=== PATIENT | female | born 1930 | race Caucasian/White ===

== ENCOUNTER 2016-09-28 09:50 | Emergency (ER) | payer MEDICARE, BC ==
[2016-09-28 10:05] VITALS: TEMP 97.8; BMI 26.6
[2016-09-28 10:21] LABS: AUTOMATED BASOPHIL 0.8 % (0-2); AUTOMATED LYMPH 15.8 % (17-44); AUTOMATED MONOCYTE 10.3 % (3-10); AUTOMATED NEUTROPHIL 71.1 % (45-76); MPV 7.9 fL (7.4-10.4)
[2016-09-28 10:34] LABS: LEUKOCYTES/URINE NEG (NEGATIVE); NITRITE/URINE NEG (NEGATIVE); URINE OCCULT BLOOD NEG (NEG/TRACE)
[2016-09-28 10:35] LABS: RBC/URINE 0-2 (0-5); WBC/URINE 0-2 (0-5)
[2016-09-28 10:40] LABS: BLOOD UREA NITROGEN 18 MG/DL (7-17); CALCIUM 9.3 MG/DL (8.4-10.2); CALCULATED OSMOLALITY 260 MOs/Kg (270-290); CHLORIDE 99 mEq/L (98-107); GLUCOSE 91 MG/DL (70-99); SODIUM LEVEL 134 mEq/L (137-146)
[2016-09-28 10:44] LABS: PARTIAL THROMB. TIME 23.4 SEC (22-35)
--- NOTE | 2016-09-28 11:29 | DIRPT ---
CLINICAL DATA: Status post fall this morning. Weakness. Initial encounter. EXAM: PORTABLE CHEST 1 VIEW COMPARISON: CT chest 07/23/2016. Single view of the chest 04/08/2016. FINDINGS: There is cardiomegaly without edema. Large hiatal hernia is seen. The lungs are clear. No pneumothorax or pleural effusion. IMPRESSION: No acute disease. Cardiomegaly. Hiatal hernia. Electronically Signed By: Jesus Barragan M.D. On: 09/28/2016 11:27
--- NOTE | 2016-09-28 12:24 | DIRPT ---
CLINICAL DATA: Status post fall this morning. Headache, weakness and dizziness. Initial encounter. EXAM: CT HEAD WITHOUT CONTRAST TECHNIQUE: Contiguous axial images were obtained from the base of the skull through the vertex without intravenous contrast. COMPARISON: Head CT scan 11/08/2015. FINDINGS: There is atrophy and chronic microvascular ischemic change. No evidence of acute intracranial abnormality including hemorrhage, infarct, mass lesion, mass effect, midline shift or abnormal extra-axial fluid collection is identified. There is no hydrocephalus or pneumocephalus. The calvarium is intact. IMPRESSION: No acute abnormality. Atrophy and chronic microvascular ischemic change. Electronically Signed By: Jesus Barragan M.D. On: 09/28/2016 12:22
--- NOTE | 2016-09-28 14:13 | EDPRACDOC ---
- General Information Chief Complaint: Generalized Weakness Stated Complaint: FALL Time Seen by Provider: 09/28/16 10:57 Information Source: Patient Home Medications: Home Medications CloNIDine (Antihypertensive) [Catapres] 0.1 mg PO DAILY PRN 11/08/15 Clopidogrel Bisulfate [Plavix] 75 mg PO DAILY 11/08/15 Gabapentin [Neurontin] 1,200 mg PO BID 11/08/15 Lovastatin 20 mg PO QHS 11/08/15 Omeprazole [Prilosec] 20 mg PO DAILY 11/08/15 Allergies/Adverse Reactions: Allergies Allergy/AdvReac Type Severity Reaction Status Date / Time aspirin [From Aggrenox] Allergy Headache Verified 09/28/16 10:05 dipyridamole [From Aggrenox] Allergy Headache Verified 09/28/16 10:05 enoxaparin sodium Allergy Headache Verified 09/28/16 10:05 [From Lovenox] hydrocodone [Hydrocodone] Allergy Rash-Genera Verified 09/28/16 10:05 lized morphine Allergy Confusion Verified 09/28/16 10:05 naproxen sodium [From Aleve] Allergy Difficulty Verified 09/28/16 10:05 Breathing prednisone Allergy Headache Verified 09/28/16 10:05 - History of Present Illness Onset: YEST Exact Onset of Symptoms: Unknown Symptoms Started: Reports: Gradually, At Rest, With light exertion Weakness: Bilateral: Generalized Symptoms: Reports: Weak Associated signs and symptoms:: Reports: None Other History: GENERALIZED WEAKNESS. NO ALLEV OR AGG FACTORS. LEGS JUST BUCKLED AND SHE SAT DOWN. DENIES INJURY. ED Past Medical History - History Reviewed If yes, which country: [facility] Travel dates: JUN 2016 - Patient Medical History Cardiac History: Reports: Atrial Fibrillation, Hypertension (OFF MEDS), Cardiac Catheterization (MARCH 2016: Nonobstructive 40-50% stenosis), Hypercholesterolemia, Valvular Heart Disease (History of mitral regurgitation.) Respiratory History: Denies: Pneumonia GI/ History: Reports: Gastroesophageal Reflux Musculoskeletal History: Reports: Arthritis (and peripheral neuropathy. DDD.), Osteoarthritis (and osteoporosis.) Psychological History: Denies: Depression, Substance Use Disorder Systemic History: Reports: Anemia (anemia of chronic disease). Denies: Cancer Surgical History: Reports: Cardiac Catheterization (Nonobstructive 40-50% stenosis), Other (Knee surgery) - Family Medical History Reports: Hypertension (mother), Cancer ([place]), Cardiac Disorders ( mother, father) - Social Medical History Smoking Status: Never smoker Social History: Denies: Substance Use Disorder EDM Review of Systems - Review of Systems ROS Negative Except as Marked: Yes All systems reviewed and were negative except as marked Constitutional: Fatigue, Loss of Appetite, Weakness. negative: Chills, Fever, Diaphoresis Eyes: No Symptoms Reported Ears: No Symptoms Reported Respiratory: No Symptoms Reported Cardiovascular: No Symptoms Reported - Physical Exam Constitutional: Alert (Awake), No apparent distress Oriented to: Time, Person, Place Last recorded Vital Signs: Last Vital Signs Temp 97.8 F 09/28/16 09:59 Pulse 69 09/28/16 11:46 Resp 20 09/28/16 09:59 BP 153/79 09/28/16 11:46 Pulse Ox 97 09/28/16 11:46 Oxygen Pulse Oxygen Saturation 97 O2 Device Oxygen Flow Rate Fraction of Inspired Oxygen ( FIO2) - HEENT Head: Normal ( normocephalic) Eye Exam: Normal (PERRL, EOMI, Sclera white) Oropharynx: Normal (Pharynx:Moist without exudate,Gums-no swelling) Tympanic Membrane: Normal ENT EAC: Normal TMJ: Normal Nose: No Symptoms Reported (septum midline) Neck: Normal (FROM, trachea at midline) - Respiratory/Cardiovascular Respiratory: Normal - CTA (BBS clear to auscultation without adventitious sounds ) Cardiovascular: Normal (RRR without murmur, gallop or rub) - GI Auscultation: Normal (NABS) Palpation: Normal (Soft,No rebound or guarding, non distended) Tenderness: Non tender Catherine's Sign: Negative - Musculoskeletal Back: Normal (Non-Tender) Extremities: Normal (Normal tone, Pulses 2+ No cyanosis or edema, FROM) - Integumentary Skin: Normal, Warm, Dry Lymphatics: Normal (no adenopathy) - Neurologic Memory Impaired: Normal Motor Function: Normal (Normal tone, Pulses 2+ No cyanosis or edema, FROM) Cranial Nerve: Normal (CN II-X11 intact sensation, strength 5/5) Cerebellar: Normal Mood Description: Normal Perception: Normal NIH Stroke Scale Re-evaluation 1 Level of Consciousness: Alert - Re-evaluation Re-evaluation 3 Re-evaluation Time: 15:28 (STILL ASYMPTOMATIC) - Results 09/28/16 10:05 09/28/16 10:05 WBC 8.7 xk/uL (3.8-10.8) 09/28/16 10:05 RBC 4.65 xM/uL (4.20-5.40) 09/28/16 10:05 Hgb 13.2 g/dL (12.0-16.0) 09/28/16 10:05 Hct 40.7 % (36-47) 09/28/16 10:05 MCV 88 fL (81-99) 09/28/16 10:05 MCH 28.5 pg (27-32) 09/28/16 10:05 MCHC 32.6 g/dl (33-36) L 09/28/16 10:05 RDW 13.7 % (11.5-14.5) 09/28/16 10:05 Plt Count 189 xk/uL (130-400) 09/28/16 10:05 MPV 7.9 fL (7.4-10.4) 09/28/16 10:05 Neut % (Auto) 71.1 % (45-76) 09/28/16 10:05 Lymph % (Auto) 15.8 % (17-44) L 09/28/16 10:05 [place] % (Auto) 10.3 % (3-10) H 09/28/16 10:05 Eos % (Auto) 2.0 % (0-5) 09/28/16 10:05 Baso % (Auto) 0.8 % (0-2) 09/28/16 10:05 Absolute Neuts (auto) 6.18 xk/uL (1.7-8.2) 09/28/16 10:05 Absolute Lymphs (auto) 1.31 xk/uL (0.65-4.75) 09/28/16 10:05 PT 10.4 SEC (9.2-11.2) 09/28/16 10:05 INR 1.0 09/28/16 10:05 APTT 23.4 SEC (22-35) 09/28/16 10:05 Sodium 134 mEq/L (137-146) L 09/28/16 10:05 Potassium 4.9 mEq/L (3.5-5.1) 09/28/16 10:05 Chloride 99 mEq/L (98-107) 09/28/16 10:05 Carbon Dioxide 25 mMOL/L (22-33) 09/28/16 10:05 Anion Gap 15 mEq/L (8-16) 09/28/16 10:05 BUN 18 MG/DL (7-17) H 09/28/16 10:05 Creatinine 1.10 MG/DL (0.52-1.04) H 09/28/16 10:05 Estimated GFR (MDRD) 47 mL/min (>=60) L 09/28/16 10:05 Glucose 91 MG/DL (70-99) 09/28/16 10:05 Calculated Osmolality 260 MOs/Kg (270-290) L 09/28/16 10:05 Calcium 9.3 MG/DL (8.4-10.2) 09/28/16 10:05 Total Bilirubin 1.4 MG/DL (0.2-1.3) H 09/28/16 10:05 AST 23 IU/L (14-36) 09/28/16 10:05 ALT 26 IU/L (9-52) 09/28/16 10:05 Alkaline Phosphatase 114 IU/L (55-165) 09/28/16 10:05 Troponin I < 0.01 ng/mL (<.04) 09/28/16 13:02 Imt-H-Vkcztpnzzxs Pept 701 pg/mL (0-1800) 09/28/16 10:05 Total Protein 8.0 G/DL (6.3-8.2) 09/28/16 10:05 Albumin 4.2 G/DL (3.5-5.0) 09/28/16 10:05 Urine Color Yellow 09/28/16 10:15 Urine Clarity Clear 09/28/16 10:15 Urine pH 5.0 (5.0-8.0) 09/28/16 10:15 Ur Specific [place] 1.005 09/28/16 10:15 Urine Protein Neg (NEG/TRACE) 09/28/16 10:15 Urine Glucose (UA) Neg (NEGATIVE) 09/28/16 10:15 Urine Ketones Neg (NEGATIVE) 09/28/16 10:15 Urine Occult Blood Neg (NEG/TRACE) 09/28/16 10:15 Urine Nitrite Neg (NEGATIVE) 09/28/16 10:15 Urine Bilirubin Neg (NEGATIVE) 09/28/16 10:15 Urine Urobilinogen 0.2 MG/DL (0-1) 09/28/16 10:15 Ur Leukocyte Esterase Neg (NEGATIVE) 09/28/16 10:15 Urine RBC 0-2 (0-5) 09/28/16 10:15 Urine WBC 0-2 (0-5) 09/28/16 10:15 Ur Epithelial Cells Occ 09/28/16 10:15 Urine Bacteria Few (NEG/FEW) 09/28/16 10:15 Hyaline Casts 5-10 (0-2) H 09/28/16 10:15 Urine Mucus Occ (NEG/OCC) 09/28/16 10:15 Lab Results 09/28/16 09/28/16 09/28/16 13:02 10:15 10:05 WBC RBC Hgb Hct MCV MCH MCHC RDW Plt Count MPV Neut % (Auto) Lymph % (Auto) [place] % (Auto) Eos % (Auto) Baso % (Auto) Absolute Neuts (auto) Absolute Lymphs (auto) PT 10.4 INR 1.0 APTT 23.4 Sodium Potassium Chloride Carbon Dioxide Anion Gap BUN Creatinine Estimated GFR (MDRD) Glucose Calculated Osmolality Calcium Total Bilirubin AST ALT Alkaline Phosphatase Troponin I < 0.01 Tpl-A-Cvgayjovkxh Pept Total Protein Albumin Urine Color Yellow Urine Clarity Clear Urine pH 5.0 Ur Specific [place] 1.005 Urine Protein Neg Urine Glucose (UA) Neg Urine Ketones Neg Urine Occult Blood Neg Urine Nitrite Neg Urine Bilirubin Neg Urine Urobilinogen 0.2 Ur Leukocyte Esterase Neg Urine RBC 0-2 Urine WBC 0-2 Ur Epithelial Cells Occ Urine Bacteria Few Hyaline Casts 5-10 H Urine Mucus Occ 09/28/16 09/28/16 10:05 10:05 WBC 8.7 RBC 4.65 Hgb 13.2 Hct 40.7 MCV 88 MCH 28.5 MCHC 32.6 L RDW 13.7 Plt Count 189 MPV 7.9 Neut % (Auto) 71.1 Lymph % (Auto) 15.8 L [place] % (Auto) 10.3 H Eos % (Auto) 2.0 Baso % (Auto) 0.8 Absolute Neuts (auto) 6.18 Absolute Lymphs (auto) 1.31 PT INR APTT Sodium 134 L Potassium 4.9 Chloride 99 Carbon Dioxide 25 Anion Gap 15 BUN 18 H Creatinine 1.10 H Estimated GFR (MDRD) 47 L Glucose 91 Calculated Osmolality 260 L Calcium 9.3 Total Bilirubin 1.4 H AST 23 ALT 26 Alkaline Phosphatase 114 Troponin I < 0.01 Rtx-E-Qbynhixtvpc Pept 701 Total Protein 8.0 Albumin 4.2 Urine Color Urine Clarity Urine pH Ur Specific [place] Urine Protein Urine Glucose (UA) Urine Ketones Urine Occult Blood Urine Nitrite Urine Bilirubin Urine Urobilinogen Ur Leukocyte Esterase Urine RBC Urine WBC Ur Epithelial Cells Urine Bacteria Hyaline Casts Urine Mucus - Diagnostic Imaging Head Image interpreted by: Radiologist Patient Name: DAIANA SARAVIA LOC: ED : 1930 AGE: 85 Order Date:09/28/16 Date of Service: Report # [id number] Ord Physician: Gladis Chow MD Exam # [id number] Emergency Physician: Gladis Chow MD Exam(s): [id number] CT/CT HEAD W/O CM CLINICAL DATA: Status post fall this morning. Headache, weakness and dizziness. Initial encounter. EXAM: CT HEAD WITHOUT CONTRAST TECHNIQUE: Contiguous axial images were obtained from the base of the skull through the vertex without intravenous contrast. COMPARISON: Head CT scan 11/08/2015. FINDINGS: There is atrophy and chronic microvascular ischemic change. No evidence of acute intracranial abnormality including hemorrhage, infarct, mass lesion, mass effect, midline shift or abnormal extra-axial fluid collection is identified. There is no hydrocephalus or pneumocephalus. The calvarium is intact. IMPRESSION: No acute abnormality. Atrophy and chronic microvascular ischemic change. Electronically Signed By: Jesus Barragan M.D. On: 09/28/2016 12:22 Electronically Signed By: Jesus Mcgovern MD Electronically Signed Date/Time: 224 Dictate Date/Time: 09/28/16 1220 Technologist: Brady Rothman Transcribed By: Lisandra Transcribed Date/Time: 09/28/16 1222 Chest Image interpreted by: Radiologist Patient Name: DAIANA SARAVIA LOC: ED : 1930 AGE: 85 Order Date:01/16/17 Date of Service: Report # [id number] Ord Physician: Gladis Chow MD Exam # [id number] Emergency Physician: Gladis Chow MD Exam(s): [id number] RAD/DG CHEST PORTABLE CLINICAL DATA: Status post fall this morning. Weakness. Initial encounter. EXAM: PORTABLE CHEST 1 VIEW COMPARISON: CT chest 07/23/2016. Single view of the chest 04/08/2016. FINDINGS: There is cardiomegaly without edema. Large hiatal hernia is seen. The lungs are clear. No pneumothorax or pleural effusion. IMPRESSION: No acute disease. Cardiomegaly. Hiatal hernia. Electronically Signed By: Jesus Barragan M.D. On: 09/28/2016 11:27 Electronically Signed By: Jesus Mcgovern MD Electronically Signed Date/Time: [id number] Dictate Date/Time: 09/28/16 1125 Technologist: Lily Roque Transcribed By: Lisandra Transcribed Date/Time: 09/28/16 1127 - Departure Disposition: Home Condition: Stable Final Diagnosis: Weakness generalized Instructions: Weakness (General) Education/Counseling Given To: Patient, Family Member Education/Counseling Given Regarding: Diagnosis, Treatment, Prognosis Referrals: Zaria Lambert NP [Primary Care Provider] - As Needed
[2016-09-28 15:47] VITALS: BP 124/69; PULSE 84
== END 2016-09-28 15:45 | disposition home or self-care (01) ==
LOC: ED 09:50
DX: R53.1 Weakness (principal); I48.91 Unspecified atrial fibrillation; E78.00 Pure hypercholesterolemia, unspecified; K21.9 Gastro-esophageal reflux disease without esophagitis; Z79.899 Other long term (current) drug therapy; R42 Dizziness and giddiness
CPT/HCPCS: 36415; 70450; 71010; 80053; 81001; 83880; 84484; 85025; 85610; 85730; 93005; 99283